=== PATIENT | male | born 1940 | race Two or more races ===

== ENCOUNTER 2019-07-24 07:34 | Outpatient (CLI) | payer OTHER | END 2019-07-24 07:37 | disposition home or self-care (01) | LOC: SONOGRAMA 07:34 | DX: E10.10 Type 1 diabetes mellitus with ketoacidosis without coma (principal); I11.0 Hypertensive heart disease with heart failure; N36.2 Urethral caruncle; N18.2 Chronic kidney disease, stage 2 (mild) ==

== ENCOUNTER 2021-06-12 07:42 | Outpatient (CLI) | payer OTHER | END 2021-06-12 07:49 | disposition home or self-care (01) | LOC: SONOGRAMA 07:42 | PROVIDERS: ATTEND Specialist/Technologist, Other Nephrology | DX: R10.84 Generalized abdominal pain (principal); R31.29 Other microscopic hematuria ==

== ENCOUNTER 2022-07-30 10:53 | Outpatient (CLI) | payer OTHER | END 2022-07-30 10:55 | disposition home or self-care (01) | LOC: RAD 10:53 | PROVIDERS: ATTEND Internal Medicine Cardiovascular Disease | DX: M12.9 Arthropathy, unspecified (principal) ==

== ENCOUNTER 2022-10-03 06:00 | Day surgery (SDC) | payer OTHER ==
[~2022-10-03 06:00] MED LIST: COZAAR100 MG PO; FINASTERIDE5 MG PO; HUMALOG100 UNIT/1; JARDIANCE10 MG PO; METFORMIN HCL500 MG PO; PANTO PO; TENORMIN25 MG PO
== END 2022-10-03 10:50 | disposition home or self-care (01) ==
LOC: CIR.AMB 06:00
PROVIDERS: ATTEND Surgery Surgery of the Hand
DX: D21.11 Benign neoplasm of connective and other soft tissue of right upper limb, including shoulder (principal); Z91.041 Radiographic dye allergy status; Z91.013 Allergy to seafood; I10 Essential (primary) hypertension; E11.9 Type 2 diabetes mellitus without complications; Z79.84 Long term (current) use of oral hypoglycemic drugs; Z20.822 Contact with and (suspected) exposure to COVID-19

== ENCOUNTER 2023-10-23 07:37 | Outpatient (CLI) | payer OTHER | END 2023-10-23 07:38 | disposition home or self-care (01) | LOC: NUCLEAR 07:37 | PROVIDERS: ATTEND Internal Medicine Pulmonary Disease | DX: C61 Malignant neoplasm of prostate (principal); R91.1 Solitary pulmonary nodule | CPT/HCPCS: 78816; A9552 ==